=== PATIENT | female | born 1990 | race Hispanic/Latino ===

== ENCOUNTER → 2017-08-15 | Outpatient (CLI) | payer OTHER | LOC: LAB 12:53 | PROVIDERS: ATTEND Obstetrics & Gynecology | DX: O03.9 Complete or unspecified spontaneous abortion without complication (principal) | CPT/HCPCS: 36415; 84702 ==

== ENCOUNTER 2018-07-31 18:44 | Observation (INO) | payer OTHER ==
[~2018-07-31] VITALS: Ht 162.6 cm; Wt 74.8 kg
[2018-07-31 19:50] VITALS: BP 116/163
[2018-07-31 20:03] LABS: APPEARANCE,URINE Clear (CLEAR); BILIRUBIN,URINE Negative (NEGATIVE); COLOR,URINE Yellow (YELLOW); GLUCOSE, URINE (UA) Negative (NEGATIVE); KETONES,URINE Negative (NEGATIVE); LEUKOCYTE ESTERASE ,URINE Negative (NEGATIVE); NITRATE,URINE Negative (NEGATIVE); OCCULT BLOOD,URINE Negative (NEGATIVE); PH,URINE 7.5 (5.0-8.0); PROTEIN,URINE Negative (NEGATIVE); UROBILINOGEN,URINE 0.2 mg/dL (0.2-1.0)
[2018-07-31] MEDS ORDERED: LACTATED RINGERS 1000ML 1,000 ML IV ONE (20:10)
[2018-07-31] MEDS ORDERED: LACTATED RINGERS 1000ML 1,000 ML IV SCH (20:30)
[2018-07-31] MEDS ORDERED: LACTATED RINGERS 1000ML IV ONE (20:30)
[2018-07-31 20:36] LABS: AMPHET/METH SCREEN,URINE NEGATIVE (NEGATIVE); BARBITURATE SCREEN, URINE NEGATIVE (NEGATIVE); BENZODIAZEPINES SCREEN,URINE NEGATIVE (NEGATIVE); CANNABINOID SCREEN,URINE NEGATIVE (NEGATIVE); COCAINE SCREEN,URINE NEGATIVE (NEGATIVE); OPIATE SCREEN,URINE NEGATIVE (NEGATIVE); PHENCYCLIDINE SCREEN,URINE NEGATIVE (NEGATIVE)
== END 2018-08-01 02:55 | disposition home or self-care (01) ==
LOC: EDH 18:44 → LDH 19:35
PROVIDERS: ADMIT Obstetrics & Gynecology; ATTEND Obstetrics & Gynecology
DX: O99.89 Other specified diseases and conditions complicating pregnancy, childbirth and the puerperium (principal); S60.511A Abrasion of right hand, initial encounter; S80.212A Abrasion, left knee, initial encounter; W18.30XA Fall on same level, unspecified, initial encounter; Y93.89 Activity, other specified; Y92.511 Restaurant or cafe as the place of occurrence of the external cause; Y99.8 Other external cause status; Z3A.33 33 weeks gestation of pregnancy; Z79.899 Other long term (current) drug therapy
CPT/HCPCS: 80305; 81003; 99284; G0378 ×7; J7120 ×2; 96360; 96361

== ENCOUNTER 2018-09-13 11:12 | Inpatient (IN) | payer OTHER | END 2018-09-14 19:05 | disposition home or self-care (01) | LOC: LDH 11:12 → WSH 21:45 ==